=== PATIENT | female | born 1955 | race Caucasian/White ===

== ENCOUNTER → 2017-11-21 | Outpatient (CLI) | payer BC ==
--- NOTE | 2017-11-22 07:20 | RAD ---
History: Bronchitis, cough Study: PA and lateral chest Findings: The cardiac silhouette and mediastinum appear within normal limits. The lungs are clear. There is a moderate size hiatal hernia noted. No acute osseous abnormality is seen. Impression: 1. No acute lung infiltrate. 2. Moderate size hiatal hernia. Reported By:
== END ==
LOC: RAD 17:47
PROVIDERS: ATTEND Nurse Practitioner Family
DX: J20.9 Acute bronchitis, unspecified (principal); K44.9 Diaphragmatic hernia without obstruction or gangrene
CPT/HCPCS: 71046